=== PATIENT | male | born 1990 | race Caucasian/White ===

== ENCOUNTER 2024-09-01 13:24 | Emergency (ER) | payer OTHER ==
[~2024-09-01] VITALS: Ht 182.9 cm; Wt 99.8 kg
[2024-09-01 14:06] LABS: BASOPHILS % (AUTO) 0.2 % (0.0-2.0); EOSINOPHILS # (AUTO) 0.1 K/uL (0.0-0.7); EOSINOPHILS % (AUTO) 0.4 % (0.0-6.0); HEMATOCRIT 43 % (39-51); HEMOGLOBIN 14.9 g/dL (13.5-17.5); LYMPHOCYTES # (AUTO) 0.9 K/uL (0.8-4.8); LYMPHOCYTES % (AUTO) 6.1 % (20.0-44.0); MEAN CORPUSCULAR HEMOGLOBIN 30 PG (26.0-33.0); MEAN CORPUSCULAR HGB CONC 34 g/dl (31.0-36.0); MEAN CORPUSCULAR VOLUME 87 fL (80-96); MONOCYTES # (AUTO) 0.5 K/uL (0.1-1.30); MONOCYTES % (AUTO) 3.1 % (2.0-12.0); NEUTROPHILS # (AUTO) 13.5 K/uL (1.8-8.9); NEUTROPHILS % (AUTO) 90.2 % (43.0-81.0); PLATELET COUNT (AUTO) 232 K/uL (150-450); RED BLOOD CELL COUNT(AUTO) 5.01 MIL/uL (4.5-6.0); RED CELL DISTRIBUTION WIDTH 12.8 % (11.5-15.0)
[2024-09-01] MEDS ORDERED: METOCLOPRAMIDE HCL 10 MG/2 ML VIAL ONE (14:12)
[2024-09-01] MEDS ORDERED: diphenhydrAMINE HCL 50 MG/ML VIAL ONE (14:12)
[2024-09-01] MEDS ORDERED: ACETAMINOPHEN ES 500 MG TABLET ONE (14:12)
[2024-09-01 14:14] LABS: CALCIUM, SERUM 9.4 mg/dL (8.5-10.1)
[2024-09-01] MEDS: ACETAMINOPHEN ES 500 MG TABLET PO ONE (14:21)
[2024-09-01] MEDS: METOCLOPRAMIDE HCL 10 MG/2 ML VIAL IV ONE (14:26)
[2024-09-01] MEDS: diphenhydrAMINE HCL 50 MG/ML VIAL IV ONE (14:26)
[2024-09-01] MEDS: IV NS 0.9% 500 ML BAG IV ONE (14:26)
[2024-09-01 14:58] VITALS: BP 130/77; TEMP 98.8; O2SAT 99
== END 2024-09-01 14:59 | disposition home or self-care (01) ==
LOC: ER 13:26
DX: R51.9 Headache, unspecified (principal); R11.0 Nausea
CPT/HCPCS: 99284; 70450; 85025; 80048; 36415; J7040; J1200; J2765